=== PATIENT | female | born 1995 | race Caucasian/White ===

== ENCOUNTER 2017-02-17 15:29 | Emergency (ER) | payer OTHER ==
[~2017-02-17 15:29] MED LIST: METR-1 PO; PREN1PAK PO
[2017-02-17 16:16] VITALS: BP 135/73; PULSE 88
--- NOTE | 2017-02-17 16:21 | PD ---
HPI Chief Complaint Headache, dizziness, spots in vision Date Seen: Feb 17, 2017 (Liset Zuñiga MD R1) Travel History International Travel<30 Days: No Contact w/Intl Traveler<30Days: No Known Affected Area: No (Liset Zuñiga MD) History of Present Illness HPI Pt is a 21 at 25/0 weeks gestation that presents to the [facility] with complaints of severe bitemporal headache, dizziness (room spinning), blurry vision, glittery spots in her vision, pressure-like chest pain when she wakes up in the morning, constant, severe, burning reflux symptoms, and sharp, intermittent, right upper quadrant pain of 2-3 weeks duration. She normally has migraines once a week and had migraines four times during her last . This current headache occurs daily. Her blood pressure has been normal except when she checked at a friend's house 2 weeks ago and was 140/90. The pt had only one OB visit at [facility] and then she moved to [place] where she had a second OB visit with labs. She moved back to the [facility] and has a scheduled visit with Leatha Lanier next week. She denies loss of fluid, vaginal bleeding, dysuria, or shortness of breath. She endorses positive movement. (Liset Zuñiga MD) History Past Medical History Medical History: Denies Significant Hx (Liset Zuñiga MD) Obstetric History Obstetric History -C/S on May 09, 2015 for breech (Liset Zuñiga MD) Past Surgical History Narrative Surgical Cesarian section (Liset Zuñiga MD) Family History Narrative Family History Father and multiple family members have HTN (Liset Zuñiga MD) Social History Alcohol Use: No Tobacco Use: Yes (1 cig every couple of days) Substance Abuse: No (Liset Zuñiga MD) Allergies-Medications (Allergen,Severity, Reaction): Coded Allergies: Mushroom (Unverified Allergy, Severe, anaphalaxis, 11/17/16) Home Meds Active Scripts Promethazine (Phenergan)25 Mg Tab25 Mg PO ONCE PRN (MIGRAINE HEADACHE) #10 TAB Ref 0 Prov:Liset Zuñiga MD 02/17/17 W/O Vit A W/ Fe Carbo Pack (Citranatal Assure Pack)35-1 & 300 Mg Pack1 Ea PO DAILY #30 BLISTER Ref 11 30 day supply. Prov:Camryn Lopez CNM [facility] 11/17/16 W/O Vit A W/ Fe Fumar (Citranatal [place])27-1-260 Mg Cap Sample #2 Prov:Carmita Lanier [facility] 11/17/16 Discontinued Scripts Metronidazole (Flagyl)500 Mg Gvy140 Mg PO BID #14 TAB Ref 0 Prov:Camryn Lopez CNM [facility] 11/17/16 Review of Systems General / Constitutional: No: Fever, Chills Eyes: Blurred Vision, Visual changes (glittery spots), No: Diploplia HENT: Headaches Cardiovascular: No: Chest Pain or Discomfort Respiratory: No: Short of Breath Gastrointestinal: No: Nausea, Vomiting Genitourinary: No: Dysuria Psychiatric: Anxiety (EkoLiset MD R1) Physical Exam Narrative GENERAL: Well-nourished, well-developed patient. SKIN: Warm and dry. HEAD: Normocephalic and atraumatic. EYES: No scleral icterus. No injection or drainage. ENT: No nasal drainage noted. Mucous membranes pink. Airway patent. NECK: Supple, trachea midline. No JVD. CARDIOVASCULAR: Regular rate and rhythm without murmurs, gallops, or rubs. RESPIRATORY: Breath sounds equal bilaterally. No accessory muscle use. BREASTS: Bilateral exam showed no masses , no retractions, no nipple discharge. ABDOMEN/GI: Abdomen soft, non-tender, bowel sounds present, no rebound, no guarding Gravid to 25 weeks size GENITOURINARY: Uterine Contractions: None FHT's: Category: I Baseline: 150 Reactive: 165 Variability: Moderate Decels: None EXTREMITIES: No cyanosis or edema. BACK: Nontender without obvious deformity. No CVA tenderness. NEUROLOGICAL: Awake and alert. Motor and sensory grossly within normal limits. Five out of 5 muscle strength in all muscle groups. Normal speech. (Liset Zuñiga MD R1) Data Data Vital Signs Reviewed: Yes Orders Vital Signs (Adult) .ON ADMISSION (02/17/17 16:16) ^ Labor Status (02/17/17 16:16) ^ Non Stress Test (02/17/17 16:16) ^ Hydration (02/17/17 16:16) (Liset Zuñiga MD R1) MDM Interpretation(s) 21 @ 25 weeks gestation presents with chief complaints of headache, dizziness, blurry vision , and visual spots that is concerning for migraines exacerbated in . Plan Intrauterine - tracing category I- reassuring -BP wnl at 135/73, 104/63 -Pt to follow up with Leatha Lanier in OB clinic -Will discharge home with Phernegan 25mg to be taken as needed for headache -Take OTC Tylenol for headache (Liset Zuñiga MD R1) Diagnosis Diagnosis: Primary Impression: Migraine headache with aura Disposition: DISCHARGE HOME Condition: Stable Scripts Promethazine (Phenergan)25 Mg Tab25 Mg PO ONCE PRN (MIGRAINE HEADACHE) #10 TAB Ref 0 Prov:Liset uZñiga MD R1 02/17/17 Collaborating MD Comments I agree with the management of this patient and have discussed care with resident team (Brandee Flood MD) Liset Zuñiga MD R1 Feb 17, 2017 16:21 Brandee Flood MD Feb 18, 2017 09:07
[2017-02-17 16:31] VITALS: BP 132/36; PULSE 92
[2017-02-17 16:37] VITALS: BP 104/63; PULSE 84
[2017-02-17] MEDS ORDERED: PROM25TA5 PO (18:22)
[2017-02-25] MEDS ORDERED: METR500T10 PO (15:49)
[2017-03-09] MEDS ORDERED: PREN1CAP7 PO (12:09)
== END 2017-02-17 17:46 | disposition home or self-care (01) ==
LOC: HOBED 15:29
DX: O26.892 Other specified pregnancy related conditions, second trimester (principal); G43.109 Migraine with aura, not intractable, without status migrainosus; H53.8 Other visual disturbances; R42 Dizziness and giddiness; Z72.0 Tobacco use
CPT/HCPCS: 99283